=== PATIENT | male | born 1955 | race African-American/Black ===

== ENCOUNTER 2019-04-01 14:28 | Emergency (ER) | payer MEDICAID ==
[~2019-04-01] VITALS: Ht 195.6 cm; Wt 120.0 kg
[~2019-04-01 14:28] MED LIST: ACET-2178 PO; ALPR0.25 PO; BACL-141 PO; CLAR10 PO; DULO60CA44 PO; FINA5TAB11 PO; FURO-151 PO; GABA-290 PO; HYDR-523 PO; KDUR20 PO; LABE100T5 PO; MIRT15TA PO; NIFE30TA94 PO; PROT40 PO; TAMS-11 PO; ZOLP5TAB2 PO
[2019-04-01] MEDS ORDERED: KETOROLAC 30MG/ML VIAL IM ONE (16:00)
[2019-04-01 18:37] LABS: CHLORIDE 108 mEq/L (98-107)
[2019-04-01] MEDS ORDERED: LORAZEPAM 1MG TABLET PO ONE (19:00)
[2019-04-01 21:13] VITALS: BP 142/67
== END 2019-04-01 21:52 | disposition home or self-care (01) ==
LOC: ER 14:37
DX: M54.5 Low back pain (principal); G89.29 Other chronic pain; J45.909 Unspecified asthma, uncomplicated; I10 Essential (primary) hypertension; F17.200 Nicotine dependence, unspecified, uncomplicated; Z86.73 Personal history of transient ischemic attack (TIA), and cerebral infarction without residual deficits; Z88.0 Allergy status to penicillin; Z79.899 Other long term (current) drug therapy
CPT/HCPCS: 36415; 72148; 80048; 96372; 99284; J1885; Z7610

== ENCOUNTER 2019-04-01 22:23 | Inpatient (IN) | payer MEDICAID ==
[~2019-04-01] VITALS: Ht 195.6 cm; Wt 109.8 kg
[2019-04-02] MEDS ORDERED: KETOROLAC 30MG/ML VIAL IM STA (00:42)
[2019-04-02] MEDS ORDERED: SODIUM CHLORIDE 0.9% 1,000 ML IV NR (03:00)
[2019-04-02 03:41] LABS: CLARITY URINE CLEAR (CLEAR); COLOR URINE DARK YELLOW (YELLOW); KETONES URINE TRACE (NEGATIVE); LEUKOCYTE ESTERASE URINE 2+ (NEGATIVE); NITRITE URINE NEGATIVE (NEGATIVE); OCCULT BLOOD URINE NEGATIVE (NEGATIVE); PH URINE 6.5 (4.5-8.0); PROTEIN URINE TRACE (NEGATIVE); SPECIFIC GRAVITY URINE 1.025 (1.005-1.030)
[2019-04-02 04:00] LABS: *AMPHETAMINES SCREEN URINE PRESUMTIVE POSITIVE (NEGATIVE); *BARBITURATES SCREEN URINE NEGATIVE (NEGATIVE); *BENZODIAZEPINES SCREEN URINE NEGATIVE (NEGATIVE); *COCAINE SCREEN URINE PRESUMTIVE POSITIVE (NEGATIVE); METHADONE URINE SCREEN NEGATIVE (NEGATIVE); OPIATES URINE SCREEN NEGATIVE (NEGATIVE)
[2019-04-02 04:01] LABS: CANNABINOID URINE SCREEN PRESUMTIVE POSITIVE (NEGATIVE); PHENCYCLIDINE URINE SCREEN NEGATIVE (NEGATIVE)
[2019-04-02 05:03] LABS: BASOPHILS % 2.2 % (0.0-2.0); EOSINOPHILS % 7.2 % (0.0-5.0); HEMATOCRIT. 37.1 % (42.0-52.0); HEMOGLOBIN. 11.7 g/dL (14.0-18.0); LYMPHOCYTES % 46.9 % (20.0-50.0); MEAN CORPUSCULAR HEMOGLOBIN 23.8 pg (28.0-32.0); MEAN CORPUSCULAR VOLUME 75.1 fL (80.0-94.0); MEAN PLATELET VOLUME 7.4 fl (7.4-10.4); MONOCYTES % 9.4 % (2.0-8.0); NEUTROPHILS % 34.3 % (40.0-76.0); PLATELET 264 x1000/uL (130-400); RED BLOOD CELL COUNT 4.93 mill/uL (4.7-6.1); RED CELL DISTRIBUTION WIDTH 17.9 % (11.6-14.6)
[2019-04-02 05:07] LABS: CHLORIDE 110 mEq/L (98-107)
[2019-04-02 05:11] LABS: ETHANOL BLOOD < 10 mg/dL
[2019-04-02 05:22] LABS: INR 1.1; PROTHROMBIN TIME 11.4 sec (9.6-11.0)
[2019-04-02] MEDS ORDERED: IBUPROFEN 600MG TABLET PO PRN ×2 (06:15→18:00)
[2019-04-02 14:40] VITALS: BP_SYST 130; BP_SYST 133; BP_DIAS 60
[2019-04-02 16:00] VITALS: BP 136/59
[2019-04-02] MEDS ORDERED: IPRATROPIUM/ALBUTEROL 0.5-3(2.5)MG/3ML NEB INH PRN (18:00)
[2019-04-02] MEDS ORDERED: DIPHENHYDRAMINE 50MG/ML VIAL IV PRN (18:00)
[2019-04-02] MEDS ORDERED: ACETAMINOPHEN 325MG TABLET PO PRN (18:00)
[2019-04-02] MEDS ORDERED: MAGNESIUM/ALUMINUM HYDROXIDE/SIMETHICONE 30ML UDC PO PRN (18:00)
[2019-04-02] MEDS ORDERED: MAGNESIUM HYDROXIDE 400MG/5ML 30ML UDC PO PRN (18:00)
[2019-04-02] MEDS ORDERED: DEXTROSE 50% WATER 50ML SYRINGE IV PRN (18:00)
[2019-04-02] MEDS ORDERED: ONDANSETRON HCL 4MG/2ML INJ IV PRN (18:00)
[2019-04-02] MEDS ORDERED: CLONIDINE 0.1MG TABLET PO PRN (18:00)
[2019-04-02] MEDS ORDERED: KETOROLAC 30MG/ML VIAL IV PRN (18:00)
[2019-04-02] MEDS ORDERED: GUAIFENESIN 200MG/10ML SUGAR FREE UDC PO PRN (18:00)
[2019-04-02 20:23] VITALS: BP 133/58
[2019-04-02] MEDS: INSULIN LISPRO 100 UNITS/ML SUBCUT SCH (21:00)
[2019-04-02] MEDS: ENOXAPARIN 30MG/0.3ML SYR SUBCUT SCH (21:01)
[2019-04-02] MEDS: BLOOD SUGAR DIAGNOSTIC STRIP TEST SCH (21:17)
[2019-04-02] MEDS: SODIUM CHLORIDE 0.9% INJ 3ML FLUSH IVF SCH (21:19)
[2019-04-03 01:00] VITALS: BP 161/73
[2019-04-03 04:00] VITALS: BP 139/51
[2019-04-03] MEDS: SODIUM CHLORIDE 0.9% INJ 3ML FLUSH IVF SCH ×3 (05:18→21:35)
[2019-04-03] MEDS: BLOOD SUGAR DIAGNOSTIC STRIP TEST SCH ×4 (05:19→21:30)
[2019-04-03] MEDS ORDERED: LORAZEPAM 2MG/ML CPJ IV NR (07:30)
[2019-04-03 08:00] VITALS: BP 138/48
[2019-04-03] MEDS: INSULIN LISPRO 100 UNITS/ML SUBCUT SCH ×4 (08:10→21:00)
[2019-04-03] MEDS: ENOXAPARIN 30MG/0.3ML SYR SUBCUT SCH ×2 (09:29→21:35)
[2019-04-03 12:00] VITALS: BP 131/59
[2019-04-03] MEDS ORDERED: FUROSEMIDE 40MG/4ML VIAL IVP NR (12:15)
[2019-04-03 13:28] LABS: HEMATOCRIT 36.7 % (42.0-52.0); HEMOGLOBIN 11.6 g/dL (14.0-18.0); MEAN CORPUSCULAR HEMOGLOBIN 24.1 pg (28.0-32.0); MEAN CORPUSCULAR VOLUME 75.7 fL (80.0-94.0); PLATELET 241 x1000/uL (130-400); RED BLOOD CELL COUNT 4.84 mill/uL (4.7-6.1); RED CELL DISTRIBUTION WIDTH 17.9 % (11.6-14.6)
[2019-04-03 13:34] LABS: CHLORIDE 107 mEq/L (98-107)
[2019-04-03 16:00] VITALS: BP 163/73
[2019-04-03] MEDS: LEVOFLOXACIN 500MG PREMIX 100 ML IV SCH (17:04)
[2019-04-03 20:00] VITALS: BP 136/60
[2019-04-04] VITALS: BP 141/63
[2019-04-04 04:00] VITALS: BP 139/58
[2019-04-04 06:39] LABS: HEMATOCRIT 37.8 % (42.0-52.0); HEMOGLOBIN 12.1 g/dL (14.0-18.0); MEAN CORPUSCULAR HEMOGLOBIN 23.8 pg (28.0-32.0); MEAN CORPUSCULAR VOLUME 74.7 fL (80.0-94.0); PLATELET 272 x1000/uL (130-400); RED BLOOD CELL COUNT 5.07 mill/uL (4.7-6.1); RED CELL DISTRIBUTION WIDTH 18.2 % (11.6-14.6)
[2019-04-04] MEDS: SODIUM CHLORIDE 0.9% INJ 3ML FLUSH IVF SCH ×3 (06:40→22:16)
[2019-04-04] MEDS: BLOOD SUGAR DIAGNOSTIC STRIP TEST SCH ×4 (06:40→20:28)
[2019-04-04 06:51] LABS: CHLORIDE 109 mEq/L (98-107)
[2019-04-04 08:00] VITALS: BP 183/66
[2019-04-04] MEDS: INSULIN LISPRO 100 UNITS/ML SUBCUT SCH ×4 (08:10→20:28)
[2019-04-04] MEDS: ENOXAPARIN 30MG/0.3ML SYR SUBCUT SCH ×2 (09:13→20:29)
[2019-04-04 12:00] VITALS: BP 159/70
[2019-04-04] MEDS: LEVOFLOXACIN 500MG PREMIX 100 ML IV SCH (13:27)
[2019-04-04] MEDS ORDERED: FUROSEMIDE 40MG/4ML VIAL IVP SCH (14:00)
[2019-04-04 16:00] VITALS: BP 130/50
[2019-04-04] MEDS: IPRATROPIUM/ALBUTEROL 0.5-3(2.5)MG/3ML NEB HHN SCH (21:07)
[2019-04-05] VITALS: BP 137/51
[2019-04-05] MEDS: IPRATROPIUM/ALBUTEROL 0.5-3(2.5)MG/3ML NEB HHN SCH ×4 (01:54→20:52)
[2019-04-05 04:00] VITALS: BP 151/74
[2019-04-05] MEDS: BLOOD SUGAR DIAGNOSTIC STRIP TEST SCH ×4 (05:43→21:00)
[2019-04-05] MEDS: SODIUM CHLORIDE 0.9% INJ 3ML FLUSH IVF SCH ×3 (05:45→23:47)
[2019-04-05 08:00] VITALS: BP 134/46
[2019-04-05] MEDS: INSULIN LISPRO 100 UNITS/ML SUBCUT SCH ×4 (08:10→21:00)
[2019-04-05] MEDS: ENOXAPARIN 30MG/0.3ML SYR SUBCUT SCH ×2 (09:00→23:23)
[2019-04-05 12:00] VITALS: BP 141/58
[2019-04-05] MEDS ORDERED: GUAIFENESIN 600MG ER TABLET PO SCH (12:45)
[2019-04-05] MEDS ORDERED: HYDRALAZINE 20MG/ML VIAL IV PRN (12:45)
[2019-04-05 13:24] LABS: BG BASE EXCESS 1.1 mmol/L (-2.0-2.0); BG DEOXYHEMOGLOBIN 3.7 % (0.0-5.0); BG FRACTION INSPIRED OXYGEN 21; BG HCO3 ACT 26.3 mmol/L (22.0-26.0); BG METHEMOGLOBIN 0.4 % (0.0-1.5); BG OXYGEN SATURATION 96.2 % (92.0-98.5); BG OXYHEMOGLOBIN 94.9 % (94.0-97.0); BG PH 7.395 (7.350-7.450); BG PO2 82.6 mmHg (75.0-100.0); BG SAMPLE SITE LEFT BRACHIAL; BG TOTAL HEMOGLOBIN 13.1 g/dL (12.0-18.0); BG VENT MODE ROOM AIR
[2019-04-05] MEDS: AMLODIPINE 5MG TABLET PO SCH (14:30)
[2019-04-05] MEDS: FUROSEMIDE 40MG/4ML VIAL IVP SCH (15:35)
[2019-04-05] MEDS: LEVOFLOXACIN 500MG PREMIX 100 ML IV SCH (15:36)
[2019-04-05 16:00] VITALS: BP 133/77
[2019-04-05 20:28] LABS: BASOPHILS % 1.3 % (0.0-2.0); EOSINOPHILS % 6.9 % (0.0-5.0); HEMATOCRIT. 37.5 % (42.0-52.0); LYMPHOCYTES % 43.5 % (20.0-50.0); MEAN CORPUSCULAR VOLUME 75.3 fL (80.0-94.0); MEAN PLATELET VOLUME 7.9 fl (7.4-10.4); MONOCYTES % 10.2 % (2.0-8.0); NEUTROPHILS % 38.1 % (40.0-76.0); PLATELET 268 x1000/uL (130-400); RED BLOOD CELL COUNT 4.99 mill/uL (4.7-6.1); RED CELL DISTRIBUTION WIDTH 18.2 % (11.6-14.6)
[2019-04-05] MEDS: GUAIFENESIN 600MG ER TABLET PO SCH (23:23)
[2019-04-06] VITALS: BP 130/47
[2019-04-06] MEDS: IPRATROPIUM/ALBUTEROL 0.5-3(2.5)MG/3ML NEB HHN SCH ×6 (00:16→20:19)
[2019-04-06 04:00] VITALS: BP 121/53
[2019-04-06] MEDS: SODIUM CHLORIDE 0.9% INJ 3ML FLUSH IVF SCH ×3 (05:21→21:09)
[2019-04-06 06:27] LABS: CHLORIDE 105 mEq/L (98-107)
[2019-04-06] MEDS: BLOOD SUGAR DIAGNOSTIC STRIP TEST SCH ×4 (06:47→21:00)
[2019-04-06 08:00] VITALS: BP 127/48
[2019-04-06] MEDS: INSULIN LISPRO 100 UNITS/ML SUBCUT SCH ×4 (08:10→21:00)
[2019-04-06] MEDS: FUROSEMIDE 40MG/4ML VIAL IVP SCH (10:37)
[2019-04-06] MEDS: AMLODIPINE 5MG TABLET PO SCH (10:38)
[2019-04-06] MEDS: GUAIFENESIN 600MG ER TABLET PO SCH ×2 (10:38→21:08)
[2019-04-06] MEDS: ENOXAPARIN 30MG/0.3ML SYR SUBCUT SCH ×2 (10:38→21:09)
[2019-04-06 12:00] VITALS: BP 118/56
[2019-04-06] MEDS: LEVOFLOXACIN 500MG PREMIX 100 ML IV SCH (15:57)
[2019-04-06 16:00] VITALS: BP 132/69
[2019-04-06 20:00] VITALS: BP 120/52
[2019-04-07 00:05] VITALS: BP 125/53
[2019-04-07] MEDS: IPRATROPIUM/ALBUTEROL 0.5-3(2.5)MG/3ML NEB HHN SCH ×4 (00:55→16:01)
[2019-04-07 04:00] VITALS: BP 105/49
[2019-04-07] MEDS: SODIUM CHLORIDE 0.9% INJ 3ML FLUSH IVF SCH ×2 (05:32→16:25)
[2019-04-07] MEDS: BLOOD SUGAR DIAGNOSTIC STRIP TEST SCH ×2 (07:51→12:40)
[2019-04-07 08:00] VITALS: BP 122/55
[2019-04-07] MEDS: INSULIN LISPRO 100 UNITS/ML SUBCUT SCH ×2 (08:10→13:10)
[2019-04-07] MEDS: GUAIFENESIN 600MG ER TABLET PO SCH (10:07)
[2019-04-07] MEDS: FUROSEMIDE 40MG/4ML VIAL IVP SCH (10:07)
[2019-04-07] MEDS: AMLODIPINE 5MG TABLET PO SCH (10:08)
[2019-04-07] MEDS: ENOXAPARIN 30MG/0.3ML SYR SUBCUT SCH (10:09)
[2019-04-07 12:00] VITALS: BP 120/50
[2019-04-07 16:00] VITALS: BP 127/60
[2019-04-07] MEDS: LEVOFLOXACIN 500MG PREMIX 100 ML IV SCH (16:25)
[2019-04-07 19:11] VITALS: BP 132/55
== END 2019-04-07 19:30 | DRG 347 ==
LOC: ER 23:00 → EDBEDREQSVC 04-02 07:34 → 7WST 04-02 08:20 → EDBEDREQ 04-02 08:23 → ENRESERV 04-02 13:49 → 5WST 04-07 18:20
PROVIDERS: ADMIT Internal Medicine; ATTEND Internal Medicine
DX: M47.9 Spondylosis, unspecified (principal); I50.43 Acute on chronic combined systolic (congestive) and diastolic (congestive) heart failure; J44.1 Chronic obstructive pulmonary disease with (acute) exacerbation; I69.353 Hemiplegia and hemiparesis following cerebral infarction affecting right non-dominant side; E11.9 Type 2 diabetes mellitus without complications; M48.00 Spinal stenosis, site unspecified; R32 Unspecified urinary incontinence; N39.0 Urinary tract infection, site not specified; G89.29 Other chronic pain; I11.0 Hypertensive heart disease with heart failure; M46.90 Unspecified inflammatory spondylopathy, site unspecified; Z80.42 Family history of malignant neoplasm of prostate; Z91.19 Patient's noncompliance with other medical treatment and regimen; Z91.81 History of falling; Z98.1 Arthrodesis status; Z72.0 Tobacco use; R26.9 Unspecified abnormalities of gait and mobility; Z79.84 Long term (current) use of oral hypoglycemic drugs
CPT/HCPCS: 36415; 36600; 71045; 80048; 80305; 80320; 82375; 82805; 82962; 83036; 85027; 93306; 93970; 96360; 96372; 97110; 97116; 97162; 97530; 99285; J1650; J1815; J1885; J1940; J1956; J7050; J7620; G0480

== ENCOUNTER 2019-12-08 20:14 | Emergency (ER) | payer MEDICAID ==
[~2019-12-08 20:14] MED LIST changes: -ACET-2178 PO; +TOPUD PO
== END 2019-12-08 21:22 | disposition left against medical advice (07) ==
LOC: ER 20:14
DX: R55 Syncope and collapse (principal); Z53.21 Procedure and treatment not carried out due to patient leaving prior to being seen by health care provider

== ENCOUNTER 2020-02-11 23:31 | Inpatient (IN) | payer MEDICAID ==
[~2020-02-11] VITALS: Ht 195.6 cm; Wt 117.9 kg
[~2020-02-11 23:31] MED LIST changes: +ALBU18HF2 IH
[2020-02-12] MEDS ORDERED: ASPIRIN 81MG TABLET PO ONE (01:00)
[2020-02-12] MEDS ORDERED: NITROGLYCERIN OINT 1GM/INCH UDPKT TD ONE (01:00)
[2020-02-12 01:16] LABS: CHLORIDE 110 mEq/L (98-107)
[2020-02-12 01:25] LABS: BASOPHILS % 2.6 % (0.0-2.0); EOSINOPHILS % 7.4 % (0.0-5.0); HEMATOCRIT. 41.6 % (42.0-52.0); HEMOGLOBIN. 13.4 g/dL (14.0-18.0); LYMPHOCYTES % 43.6 % (20.0-50.0); MEAN CORPUSCULAR HEMOGLOBIN 25.3 pg (28.0-32.0); MEAN CORPUSCULAR VOLUME 78.5 fL (80.0-94.0); MEAN PLATELET VOLUME 8.4 fl (7.4-10.4); MONOCYTES % 10.6 % (2.0-8.0); NEUTROPHILS % 35.8 % (40.0-76.0); PLATELET 262 x1000/uL (130-400); RED CELL DISTRIBUTION WIDTH 17.8 % (11.6-14.6)
[2020-02-12] MEDS ORDERED: KETOROLAC 15MG/ML VIAL IV PRN (08:45)
[2020-02-12] MEDS ORDERED: GUAIFENESIN 200MG/10ML SUGAR FREE UDC PO PRN (08:45)
[2020-02-12] MEDS ORDERED: ENOXAPARIN 40MG/0.4ML SYR SUBCUT SCH (08:45)
[2020-02-12] MEDS ORDERED: IPRATROPIUM/ALBUTEROL 0.5-3(2.5)MG/3ML NEB NEB PRN (08:45)
[2020-02-12] MEDS ORDERED: NITROGLYCERIN 0.4MG TABLET SL SL PRN (08:45)
[2020-02-12] MEDS ORDERED: CLONIDINE 0.1MG TABLET PO PRN (08:45)
[2020-02-12] MEDS ORDERED: ACETAMINOPHEN 325MG TABLET PO PRN ×2 (08:45)
[2020-02-12] MEDS ORDERED: MAGNESIUM/ALUMINUM HYDROXIDE/SIMETHICONE 30ML UDC PO PRN (08:45)
[2020-02-12] MEDS ORDERED: ZOLPIDEM TARTRATE 5MG TABLET PO PRN (08:45)
[2020-02-12] MEDS ORDERED: LORAZEPAM 0.5MG TABLET PO PRN (08:45)
[2020-02-12] MEDS ORDERED: ONDANSETRON HCL 4MG/2ML INJ IV PRN (08:45)
[2020-02-12] MEDS ORDERED: DOCUSATE SODIUM 100MG CAPSULE PO PRN (08:45)
[2020-02-12] MEDS: ASPIRIN 325MG EC TABLET PO SCH (09:52)
[2020-02-12] MEDS: SPIRONOLACTONE 25MG TABLET PO SCH ×2 (09:52→21:00)
[2020-02-12] MEDS: FAMOTIDINE 20MG TABLET PO SCH ×2 (09:53→21:39)
[2020-02-12] MEDS: FUROSEMIDE 20MG/2ML VIAL IV SCH ×2 (09:53→16:51)
[2020-02-12 11:40] VITALS: BP 161/74
[2020-02-12 12:00] VITALS: BP 161/74
[2020-02-12] MEDS ORDERED: MORP30CP13 PO (12:11)
[2020-02-12] MEDS ORDERED: OXYC30TA89 PO (12:12)
[2020-02-12] MEDS ORDERED: AMLO5TAB88 PO (12:12)
[2020-02-12] MEDS: ENOXAPARIN 40MG/0.4ML SYR SUBCUT SCH (15:17)
[2020-02-12 16:00] VITALS: BP 132/46
[2020-02-12 20:00] VITALS: BP 138/55
[2020-02-12] MEDS: LISINOPRIL 10MG TABLET PO SCH (21:39)
[2020-02-12 23:59] LABS: CREATINE KINASE MB FRACTION 1.5 ng/mL (0.5-3.6)
[2020-02-13] VITALS: BP 144/60
[2020-02-13 04:00] VITALS: BP 127/52
[2020-02-13 04:55] LABS: *AMPHETAMINES SCREEN URINE NEGATIVE (NEGATIVE); CANNABINOID URINE SCREEN PRESUMTIVE POSITIVE (NEGATIVE); METHADONE URINE SCREEN NEGATIVE (NEGATIVE); OPIATES URINE SCREEN NEGATIVE (NEGATIVE); PHENCYCLIDINE URINE SCREEN NEGATIVE (NEGATIVE)
[2020-02-13 04:56] LABS: *BARBITURATES SCREEN URINE NEGATIVE (NEGATIVE); *BENZODIAZEPINES SCREEN URINE NEGATIVE (NEGATIVE); *COCAINE SCREEN URINE NEGATIVE (NEGATIVE)
[2020-02-13 08:00] VITALS: BP 184/55
[2020-02-13] MEDS: ASPIRIN 325MG EC TABLET PO SCH (09:53)
[2020-02-13] MEDS: ENOXAPARIN 40MG/0.4ML SYR SUBCUT SCH (09:53)
[2020-02-13] MEDS: FAMOTIDINE 20MG TABLET PO SCH (09:53)
[2020-02-13] MEDS: FUROSEMIDE 20MG/2ML VIAL IV SCH (09:53)
[2020-02-13] MEDS: SPIRONOLACTONE 25MG TABLET PO SCH (09:54)
[2020-02-13] MEDS: LISINOPRIL 10MG TABLET PO SCH (09:54)
[2020-02-13] MEDS ORDERED: AMLODIPINE 10MG TABLET PO SCH (11:00)
[2020-02-13 12:00] VITALS: BP 162/79
[2020-02-13 16:00] VITALS: BP 141/100
== END 2020-02-13 17:30 | disposition home or self-care (01) | DRG 816 ==
LOC: ER 23:31 → 5WST 02-12 04:34 → EDBEDREQ 02-12 04:40 → EDBEDREQTM 02-12 04:40 → ENRESERV 02-12 10:49
PROVIDERS: ADMIT Internal Medicine; ATTEND Internal Medicine
DX: T40.5X1A Poisoning by cocaine, accidental (unintentional), initial encounter (principal); I21.4 Non-ST elevation (NSTEMI) myocardial infarction; I11.0 Hypertensive heart disease with heart failure; I50.32 Chronic diastolic (congestive) heart failure; I20.1 Angina pectoris with documented spasm; J44.9 Chronic obstructive pulmonary disease, unspecified; D63.8 Anemia in other chronic diseases classified elsewhere; F14.10 Cocaine abuse, uncomplicated; Y92.89 Other specified places as the place of occurrence of the external cause; Z86.73 Personal history of transient ischemic attack (TIA), and cerebral infarction without residual deficits; Z88.0 Allergy status to penicillin; Z79.899 Other long term (current) drug therapy
CPT/HCPCS: 36415; 71045; 80053; 80061; 80305; 82550; 82553; 83036; 83880; 84484; 85025; 92610; 93005; 93970; 99285; J1650; J1885; J1940

== ENCOUNTER 2020-03-18 22:07 | Inpatient (IN) | payer MEDICAID ==
[~2020-03-18] VITALS: Ht 180.3 cm; Wt 120.2 kg
[~2020-03-18 22:07] MED LIST changes: +AMLO5TAB88 PO; +MORP30CP13 PO; +OXYC30TA89 PO
[2020-03-19] MEDS ORDERED: ONDANSETRON HCL 4MG/2ML INJ IV STA (00:03)
[2020-03-19] MEDS ORDERED: DEXTROSE 5% WATER 1,000 ML IV ONE (00:03)
[2020-03-19 00:27] LABS: BASOPHILS % 1.5 % (0.0-2.0); EOSINOPHILS % 4.1 % (0.0-5.0); HEMATOCRIT. 37.2 % (42.0-52.0); HEMOGLOBIN. 12.1 g/dL (14.0-18.0); LYMPHOCYTES % 36.1 % (20.0-50.0); MEAN CORPUSCULAR HEMOGLOBIN 25.2 pg (28.0-32.0); MEAN CORPUSCULAR VOLUME 77.4 fL (80.0-94.0); MEAN PLATELET VOLUME 8.6 fl (7.4-10.4); MONOCYTES % 8.7 % (2.0-8.0); NEUTROPHILS % 49.6 % (40.0-76.0); PLATELET 258 x1000/uL (130-400); RED BLOOD CELL COUNT 4.81 mill/uL (4.7-6.1); RED CELL DISTRIBUTION WIDTH 17.3 % (11.6-14.6)
[2020-03-19 00:29] LABS: BG BASE EXCESS 0.6 mmol/L (-2.0-2.0); BG CARBOXYHEMOGLOBIN 2.9 % (0.5-1.5); BG DEOXYHEMOGLOBIN 7.1 % (0.0-5.0); BG FRACTION INSPIRED OXYGEN 21; BG HCO3 ACT 26.3 mmol/L (22.0-26.0); BG METHEMOGLOBIN 0.2 % (0.0-1.5); BG OXYGEN SATURATION 92.7 % (92.0-98.5); BG OXYHEMOGLOBIN 89.8 % (94.0-97.0); BG PCO2 46.6 mmHg (35.0-45.0); BG PH 7.369 (7.350-7.450); BG PO2 69.4 mmHg (75.0-100.0); BG SAMPLE SITE RIGHT RADIAL; BG TOTAL HEMOGLOBIN 12.6 g/dL (12.0-18.0); BG VENT MODE ROOM AIR
[2020-03-19 00:32] LABS: PROTHROMBIN TIME 10.7 sec (9.6-11.0)
[2020-03-19 00:34] LABS: CHLORIDE 107 mEq/L (98-107)
[2020-03-19 00:38] LABS: ETHANOL BLOOD < 10 mg/dL
[2020-03-19 04:18] LABS: CLARITY URINE CLEAR (CLEAR); COLOR URINE YELLOW (YELLOW); KETONES URINE NEGATIVE (NEGATIVE); LEUKOCYTE ESTERASE URINE 2+ (NEGATIVE); NITRITE URINE NEGATIVE (NEGATIVE); OCCULT BLOOD URINE NEGATIVE (NEGATIVE); PROTEIN URINE NEGATIVE (NEGATIVE); SPECIFIC GRAVITY URINE 1.017 (1.005-1.030)
[2020-03-19 04:34] LABS: *AMPHETAMINES SCREEN URINE NEGATIVE (NEGATIVE); *BARBITURATES SCREEN URINE NEGATIVE (NEGATIVE); *BENZODIAZEPINES SCREEN URINE NEGATIVE (NEGATIVE)
[2020-03-19 04:35] LABS: *COCAINE SCREEN URINE PRESUMTIVE POSITIVE (NEGATIVE); CANNABINOID URINE SCREEN PRESUMTIVE POSITIVE (NEGATIVE); METHADONE URINE SCREEN NEGATIVE (NEGATIVE); OPIATES URINE SCREEN NEGATIVE (NEGATIVE); PHENCYCLIDINE URINE SCREEN NEGATIVE (NEGATIVE)
[2020-03-19] MEDS ORDERED: CEFTRIAXONE 1 G PREMIX 50 ML IV ONE (06:00)
[2020-03-19] MEDS ORDERED: ACETAMINOPHEN 325MG TABLET PO PRN (08:45)
[2020-03-19] MEDS ORDERED: ONDANSETRON HCL 4MG/2ML INJ IV PRN (08:45)
[2020-03-19] MEDS ORDERED: ENOXAPARIN 30MG/0.3ML SYR SUBCUT SCH (13:15)
[2020-03-19] MEDS ORDERED: ASPIRIN 300MG SUPP PR NR (13:15)
[2020-03-19] MEDS ORDERED: FUROSEMIDE 40MG/4ML VIAL IVP NR (16:30)
[2020-03-19 16:35] VITALS: BP 118/72
[2020-03-19 17:01] LABS: FOLIC ACID (FOLATE) SERUM 12.9 ng/mL (>5.38)
[2020-03-19] MEDS ORDERED: IPRATROPIUM/ALBUTEROL 0.5-3(2.5)MG/3ML NEB HHN PRN (17:15)
[2020-03-20] VITALS: BP 138/69
[2020-03-20 04:00] VITALS: BP 129/89
[2020-03-20 08:00] VITALS: BP 154/63
[2020-03-20] MEDS: ENOXAPARIN 30MG/0.3ML SYR SUBCUT SCH ×2 (08:12→22:36)
[2020-03-20] MEDS: CLOPIDOGREL 75MG TABLET PO SCH (08:12)
[2020-03-20 12:00] VITALS: BP 154/63
[2020-03-20] MEDS ORDERED: FUROSEMIDE 40MG/4ML VIAL IVP NR (16:15)
[2020-03-20 16:38] VITALS: BP 160/66
[2020-03-20] MEDS ORDERED: CLONIDINE 0.1MG TABLET PO PRN (18:30)
[2020-03-20 20:00] VITALS: BP 152/84
[2020-03-21] VITALS: BP 159/60
[2020-03-21 04:00] VITALS: BP 157/70
[2020-03-21 08:00] VITALS: BP 141/57
[2020-03-21] MEDS ORDERED: FUROSEMIDE 40MG/4ML VIAL IVP NR (09:00)
[2020-03-21] MEDS: ENOXAPARIN 30MG/0.3ML SYR SUBCUT SCH ×2 (09:03→20:38)
[2020-03-21] MEDS: CLOPIDOGREL 75MG TABLET PO SCH (09:03)
[2020-03-21 12:00] VITALS: BP 134/50
[2020-03-21] MEDS ORDERED: POTA20TA82 MT (12:22)
[2020-03-21] MEDS ORDERED: ALBU18HF2 IH (12:22)
[2020-03-21] MEDS ORDERED: TAMS-11 PO (12:22)
[2020-03-21] MEDS ORDERED: CLOP75TA4 MT (12:22)
[2020-03-21] MEDS ORDERED: AMLO10TA80 MT (12:22)
[2020-03-21] MEDS ORDERED: FURO-151 PO (12:22)
[2020-03-21 16:00] VITALS: BP 127/55
[2020-03-21 16:28] LABS: BASOPHILS % 3.1 % (0.0-2.0); EOSINOPHILS % 7.5 % (0.0-5.0); HEMOGLOBIN. 13.9 g/dL (14.0-18.0); LYMPHOCYTES % 41.9 % (20.0-50.0); MEAN CORPUSCULAR HEMOGLOBIN 24.5 pg (28.0-32.0); MEAN CORPUSCULAR VOLUME 77.8 fL (80.0-94.0); MEAN PLATELET VOLUME 8.1 fl (7.4-10.4); MONOCYTES % 11.1 % (2.0-8.0); NEUTROPHILS % 36.4 % (40.0-76.0); PLATELET 317 x1000/uL (130-400); RED BLOOD CELL COUNT 5.66 mill/uL (4.7-6.1); RED CELL DISTRIBUTION WIDTH 17.9 % (11.6-14.6)
[2020-03-21 16:34] LABS: CHLORIDE 105 mEq/L (98-107)
[2020-03-21 20:00] VITALS: BP 150/64
[2020-03-22] VITALS: BP 133/56
[2020-03-22 04:00] VITALS: BP 95/59
[2020-03-22] MEDS: CLOPIDOGREL 75MG TABLET PO SCH (08:43)
[2020-03-22] MEDS: ENOXAPARIN 30MG/0.3ML SYR SUBCUT SCH (08:43)
[2020-03-22 11:23] VITALS: BP 146/75
== END 2020-03-22 13:30 | disposition home or self-care (01) | DRG 45 ==
LOC: ER 22:07 → 5WST 03-19 02:52 → EDBEDREQ 03-19 03:01 → EDBEDREQTM 03-19 03:01 → ENRESERV 03-19 13:37
PROVIDERS: ADMIT Internal Medicine; ATTEND Internal Medicine
DX: I63.9 Cerebral infarction, unspecified (principal); G92 Toxic encephalopathy; I50.31 Acute diastolic (congestive) heart failure; I11.0 Hypertensive heart disease with heart failure; I69.351 Hemiplegia and hemiparesis following cerebral infarction affecting right dominant side; D64.9 Anemia, unspecified; E66.9 Obesity, unspecified; F12.10 Cannabis abuse, uncomplicated; F14.10 Cocaine abuse, uncomplicated; F17.210 Nicotine dependence, cigarettes, uncomplicated; I16.1 Hypertensive emergency; Z60.2 Problems related to living alone; T46.5X6A Underdosing of other antihypertensive drugs, initial encounter; J44.9 Chronic obstructive pulmonary disease, unspecified; I25.2 Old myocardial infarction; Z91.14 Patient's other noncompliance with medication regimen; Y92.89 Other specified places as the place of occurrence of the external cause; Z79.899 Other long term (current) drug therapy; Z88.0 Allergy status to penicillin; Z71.89 Other specified counseling; Z71.6 Tobacco abuse counseling; Z68.37 Body mass index [BMI] 37.0-37.9, adult
CPT/HCPCS: 36415; 36600; 71045; 80048; 80053; 80061; 80305; 80320; 81003; 82140; 82375; 82607; 82746; 82805; 83036; 83605; 83880; 84439; 84443; 84481; 84484; 85025; 86850; 86900; 93005; 93306; 93880; 97162; 97166; 99291; J0696; J1650; J1940; J2405; J7070; G0480

== ENCOUNTER 2020-06-22 21:37 | Emergency (ER) | payer MEDICAID ==
[~2020-06-22] VITALS: Ht 175.3 cm; Wt 84.0 kg
[~2020-06-22 21:37] MED LIST changes: +AMLO10TA80 MT; +CLOP75TA4 MT; +POTA20TA82 MT
[2020-06-22 22:35] VITALS: BP 149/72
[2020-06-22] MEDS ORDERED: ASPIRIN 81MG TABLET PO ONE (22:45)
[2020-06-22] MEDS ORDERED: NITROGLYCERIN 0.4MG TABLET SL SL PRN (22:45)
== END 2020-06-22 23:50 | disposition home or self-care (01) ==
LOC: ER 21:37
DX: R07.89 Other chest pain (principal); I25.2 Old myocardial infarction; I25.10 Atherosclerotic heart disease of native coronary artery without angina pectoris; Z86.73 Personal history of transient ischemic attack (TIA), and cerebral infarction without residual deficits; Z88.0 Allergy status to penicillin
CPT/HCPCS: 93005; 99283

== ENCOUNTER 2021-08-06 10:53 | Emergency (ER) | payer MEDICAID ==
[~2021-08-06] VITALS: Ht 170.2 cm; Wt 109.0 kg
[~2021-08-06 10:53] MED LIST changes: +CLOP-31 MT; -CLOP75TA4 MT; +MIRT-118 PO; -MIRT15TA PO; +OXYC-582 PO; -OXYC30TA89 PO
[2021-08-06] MEDS ORDERED: ALPRAZOLAM 0.25 MG TABLET PO ONE (11:30)
[2021-08-06] MEDS ORDERED: HYDROCODONE/ACETAMINOPHEN 5/325MG TABLET PO ONE (11:30)
[2021-08-06] MEDS ORDERED: LABETALOL HCL 100MG TABLET PO ONE (11:30)
[2021-08-06] MEDS ORDERED: TETANUS, DIPHTHERIA, PERTUSSIS VAC/PF 0.5ML (>10YR OLD) IM ONE (11:45)
[2021-08-06] MEDS ORDERED: BACITRACIN 15GM TUBE TOP ONE (11:45)
[2021-08-06] MEDS ORDERED: HALOPERIDOL LACTATE 5MG/ML VIAL IM ONE (13:30)
[2021-08-06] MEDS ORDERED: DIPHENHYDRAMINE 50MG/ML VIAL IM ONE (13:30)
[2021-08-06 14:25] LABS: CHLORIDE 111 mEq/L (98-107)
[2021-08-06 14:59] LABS: BASOPHILS % 1.5 % (0.0-2.0); HEMATOCRIT. 33.9 % (42.0-52.0); HEMOGLOBIN. 10.3 g/dL (14.0-18.0); LYMPHOCYTES % 30.8 % (20.0-50.0); MEAN PLATELET VOLUME 7.4 fl (7.4-10.4); MONOCYTES % 7.7 % (2.0-8.0); PLATELET 351 x1000/uL (130-400); RED BLOOD CELL COUNT 4.92 mill/uL (4.7-6.1); RED CELL DISTRIBUTION WIDTH 19.6 % (11.6-14.6)
[2021-08-06 15:49] LABS: PLATELET ESTIMATE NORMAL
[2021-08-06 20:33] LABS: CLARITY URINE CLEAR (CLEAR); COLOR URINE YELLOW (YELLOW); KETONES URINE NEGATIVE (NEGATIVE); LEUKOCYTE ESTERASE URINE 1+ (NEGATIVE); NITRITE URINE NEGATIVE (NEGATIVE); OCCULT BLOOD URINE NEGATIVE (NEGATIVE); PH URINE 6.5 (4.5-8.0); PROTEIN URINE NEGATIVE (NEGATIVE); SPECIFIC GRAVITY URINE 1.014 (1.005-1.030)
[2021-08-06 20:47] LABS: *AMPHETAMINES SCREEN URINE NEGATIVE (NEGATIVE); *BARBITURATES SCREEN URINE NEGATIVE (NEGATIVE)
[2021-08-06 20:48] LABS: *BENZODIAZEPINES SCREEN URINE NEGATIVE (NEGATIVE); *COCAINE SCREEN URINE PRESUMTIVE POSITIVE (NEGATIVE); METHADONE URINE SCREEN NEGATIVE (NEGATIVE); OPIATES URINE SCREEN PRESUMTIVE POSITIVE (NEGATIVE); PHENCYCLIDINE URINE SCREEN NEGATIVE (NEGATIVE)
[2021-08-06 20:49] LABS: CANNABINOID URINE SCREEN PRESUMTIVE POSITIVE (NEGATIVE)
[2021-08-07 06:00] VITALS: BP 138/59
== END 2021-08-07 06:51 | disposition home or self-care (01) ==
LOC: ER 10:53
DX: S09.8XXA Other specified injuries of head, initial encounter (principal); S80.212A Abrasion, left knee, initial encounter; S80.211A Abrasion, right knee, initial encounter; M79.18 Myalgia, other site; M54.2 Cervicalgia; M54.9 Dorsalgia, unspecified; R45.1 Restlessness and agitation; Y08.89XA Assault by other specified means, initial encounter; Y04.2XXA Assault by strike against or bumped into by another person, initial encounter; Y93.89 Activity, other specified; Y92.488 Other paved roadways as the place of occurrence of the external cause; F40.240 Claustrophobia; D64.9 Anemia, unspecified; F41.9 Anxiety disorder, unspecified; N40.0 Benign prostatic hyperplasia without lower urinary tract symptoms; J45.909 Unspecified asthma, uncomplicated; I25.2 Old myocardial infarction; I11.9 Hypertensive heart disease without heart failure; Z86.73 Personal history of transient ischemic attack (TIA), and cerebral infarction without residual deficits; Z88.0 Allergy status to penicillin; Z79.899 Other long term (current) drug therapy; Z79.51 Long term (current) use of inhaled steroids
CPT/HCPCS: 36415; 70450; 80053; 80305; 81003; 82140; 85025; 90471; 90715; 93005; 96372; 99285; J1200; J1630

== ENCOUNTER 2021-08-09 13:06 | Inpatient (IN) | payer MEDICAID ==
[~2021-08-09] VITALS: Ht 195.6 cm; Wt 107.0 kg
[2021-08-09] MEDS ORDERED: ONDANSETRON HCL 4MG/2ML INJ IV STA (13:47)
[2021-08-09] MEDS ORDERED: MORPHINE SULFATE 4 MG/ML CPJ (NOT FOR IM USE) IV STA (13:47)
[2021-08-09] MEDS ORDERED: SODIUM CHLORIDE 0.9% 1,000 ML IV ONE (14:00)
[2021-08-09 14:29] LABS: BASOPHILS % 1.8 % (0.0-2.0); EOSINOPHILS % 5.8 % (0.0-5.0); HEMATOCRIT. 35.9 % (42.0-52.0); HEMOGLOBIN. 11.3 g/dL (14.0-18.0); LYMPHOCYTES % 30.4 % (20.0-50.0); MEAN CORPUSCULAR HEMOGLOBIN 21.4 pg (28.0-32.0); MEAN CORPUSCULAR VOLUME 68.1 fL (80.0-94.0); MEAN PLATELET VOLUME 8.4 fl (7.4-10.4); MONOCYTES % 11.9 % (2.0-8.0); NEUTROPHILS % 50.1 % (40.0-76.0); PLATELET 305 x1000/uL (130-400); RED BLOOD CELL COUNT 5.27 mill/uL (4.7-6.1); RED CELL DISTRIBUTION WIDTH 19.8 % (11.6-14.6)
[2021-08-09 14:36] LABS: CHLORIDE 111 mEq/L (98-107)
[2021-08-09 14:40] LABS: D-DIMER 1.18 mg/L FEU (<0.50); PARTIAL THROMBOPLASTIN TIME 26.1 sec (23.4-31.0); PROTHROMBIN TIME 11.2 sec (9.6-11.0)
[2021-08-09 14:41] LABS: ETHANOL BLOOD < 10 mg/dL
[2021-08-09 14:51] LABS: PLATELET ESTIMATE NORMAL
[2021-08-09] MEDS ORDERED: ACETAMINOPHEN 650MG SUPP PR PRN ×2 (16:45)
[2021-08-09] MEDS ORDERED: DIPHENHYDRAMINE 50MG/ML VIAL IV PRN (16:45)
[2021-08-09] MEDS ORDERED: ACETAMINOPHEN 650MG/20.3ML UDC GT PRN ×2 (16:45)
[2021-08-09] MEDS ORDERED: GUAIFENESIN 200MG/10ML SUGAR FREE UDC PO PRN (16:45)
[2021-08-09] MEDS ORDERED: DOCUSATE SODIUM 100MG CAPSULE PO PRN (16:45)
[2021-08-09] MEDS ORDERED: ACETAMINOPHEN 325MG TABLET PO PRN ×2 (16:45)
[2021-08-09] MEDS ORDERED: MAGNESIUM/ALUMINUM HYDROXIDE/SIMETHICONE 30ML UDC PO PRN (16:45)
[2021-08-09] MEDS ORDERED: CLONIDINE 0.1MG TABLET PO PRN (16:45)
[2021-08-09] MEDS ORDERED: NA PHOS,M-B/NA PHOS,DI-BA ENEMA 118ML PR PRN (16:45)
[2021-08-09] MEDS: ENOXAPARIN 40MG/0.4ML SYR SUBCUT SCH (17:57)
[2021-08-09] MEDS: SODIUM CHLORIDE 0.9% INJ 3ML FLUSH IVF SCH (22:32)
[2021-08-09] MEDS ORDERED: IOHEXOL-350 100 ML BOTTLE ONE (23:40)
[2021-08-09 23:43] VITALS: BP 136/61
[2021-08-09 23:52] VITALS: BP 136/61
[2021-08-10 04:00] VITALS: BP 130/58
[2021-08-10] MEDS: SODIUM CHLORIDE 0.9% INJ 3ML FLUSH IVF SCH ×3 (05:53→21:50)
[2021-08-10 07:51] LABS: EOSINOPHILS % 7.8 % (0.0-5.0); HEMATOCRIT. 33.7 % (42.0-52.0); HEMOGLOBIN. 10.6 g/dL (14.0-18.0); LYMPHOCYTES % 35.6 % (20.0-50.0); MEAN CORPUSCULAR HEMOGLOBIN 21.6 pg (28.0-32.0); MEAN CORPUSCULAR VOLUME 68.8 fL (80.0-94.0); MEAN PLATELET VOLUME 8.8 fl (7.4-10.4); MONOCYTES % 9.6 % (2.0-8.0); PLATELET 302 x1000/uL (130-400); RED BLOOD CELL COUNT 4.89 mill/uL (4.7-6.1); RED CELL DISTRIBUTION WIDTH 19.7 % (11.6-14.6)
[2021-08-10 08:00] VITALS: BP 139/59
[2021-08-10 09:04] LABS: CHLORIDE 109 mEq/L (98-107)
[2021-08-10 09:21] LABS: HDL CHOLESTEROL 55 mg/dL (40-59); LDL CHOLESTEROL 35 mg/dL (5-100)
[2021-08-10 09:22] LABS: CREATINE KINASE 54 IU/L (39-308)
[2021-08-10 09:26] LABS: CREATINE KINASE MB FRACTION 2.1 ng/mL (0.5-3.6)
[2021-08-10] MEDS: ASPIRIN 81MG TABLET PO SCH (11:26)
[2021-08-10 12:00] VITALS: BP 141/61
[2021-08-10 15:59] LABS: T4 FREE 0.94 ng/dL (0.76-1.46)
[2021-08-10 16:00] VITALS: BP 154/65
[2021-08-10] MEDS: ENOXAPARIN 40MG/0.4ML SYR SUBCUT SCH (18:10)
[2021-08-10 20:00] VITALS: BP 144/61
[2021-08-11] VITALS: BP 115/64
[2021-08-11 04:00] VITALS: BP 146/65
[2021-08-11] MEDS: SODIUM CHLORIDE 0.9% INJ 3ML FLUSH IVF SCH ×2 (05:12→22:50)
[2021-08-11 08:00] VITALS: BP 135/63
[2021-08-11] MEDS: ASPIRIN 81MG TABLET PO SCH (09:10)
[2021-08-11 12:00] VITALS: BP 134/56
[2021-08-11 16:00] VITALS: BP 119/67
[2021-08-11] MEDS: ENOXAPARIN 40MG/0.4ML SYR SUBCUT SCH (18:15)
[2021-08-11 20:00] VITALS: BP 124/55
[2021-08-11] MEDS ORDERED: HYDROCODONE/ACETAMINOPHEN 5/325MG TABLET PO PRN (20:30)
[2021-08-11] MEDS ORDERED: FUROSEMIDE 40MG TABLET PO NR (20:45)
[2021-08-12] VITALS: BP 120/66
[2021-08-12 04:00] VITALS: BP 146/57
[2021-08-12] MEDS: SODIUM CHLORIDE 0.9% INJ 3ML FLUSH IVF SCH ×2 (05:22→14:53)
[2021-08-12 05:47] LABS: BASOPHILS % 2.1 % (0.0-2.0); EOSINOPHILS % 9.9 % (0.0-5.0); HEMATOCRIT. 34.7 % (42.0-52.0); HEMOGLOBIN. 10.8 g/dL (14.0-18.0); MEAN CORPUSCULAR HEMOGLOBIN 21.4 pg (28.0-32.0); MEAN CORPUSCULAR VOLUME 68.6 fL (80.0-94.0); MEAN PLATELET VOLUME 8.7 fl (7.4-10.4); MONOCYTES % 7.8 % (2.0-8.0); NEUTROPHILS % 39.2 % (40.0-76.0); PLATELET 277 x1000/uL (130-400); RED BLOOD CELL COUNT 5.05 mill/uL (4.7-6.1); RED CELL DISTRIBUTION WIDTH 19.2 % (11.6-14.6)
[2021-08-12 05:57] LABS: CHLORIDE 105 mEq/L (98-107)
[2021-08-12 08:00] VITALS: BP 129/57
[2021-08-12] MEDS ORDERED: LOSARTAN POTASSIUM 25 MG TABLET PO SCH (08:00)
[2021-08-12] MEDS: ASPIRIN 81MG TABLET PO SCH (08:17)
[2021-08-12] MEDS ORDERED: FUROSEMIDE 40MG TABLET PO SCH (09:00)
[2021-08-12 12:00] VITALS: BP 144/63
[2021-08-12 12:04] LABS: *AMPHETAMINES SCREEN URINE NEGATIVE (NEGATIVE); *COCAINE SCREEN URINE NEGATIVE (NEGATIVE); CANNABINOID URINE SCREEN PRESUMTIVE POSITIVE (NEGATIVE); METHADONE URINE SCREEN NEGATIVE (NEGATIVE); OPIATES URINE SCREEN PRESUMTIVE POSITIVE (NEGATIVE); PHENCYCLIDINE URINE SCREEN NEGATIVE (NEGATIVE)
[2021-08-12 12:05] LABS: *BARBITURATES SCREEN URINE NEGATIVE (NEGATIVE); *BENZODIAZEPINES SCREEN URINE NEGATIVE (NEGATIVE)
[2021-08-12 14:51] VITALS: BP 144/63
[2021-08-12 16:00] VITALS: BP 105/60
== END 2021-08-12 18:46 | DRG 243 ==
LOC: ER 13:06 → MICUSO 16:26 → 8WST 20:54
PROVIDERS: ADMIT Family Medicine; ATTEND Family Medicine
DX: K21.9 Gastro-esophageal reflux disease without esophagitis (principal); I42.9 Cardiomyopathy, unspecified; I50.32 Chronic diastolic (congestive) heart failure; I11.0 Hypertensive heart disease with heart failure; E78.5 Hyperlipidemia, unspecified; I25.10 Atherosclerotic heart disease of native coronary artery without angina pectoris; J44.9 Chronic obstructive pulmonary disease, unspecified; F17.210 Nicotine dependence, cigarettes, uncomplicated; Z20.822 Contact with and (suspected) exposure to COVID-19; N40.0 Benign prostatic hyperplasia without lower urinary tract symptoms; Z59.0 Homelessness; I25.2 Old myocardial infarction; Z86.73 Personal history of transient ischemic attack (TIA), and cerebral infarction without residual deficits; Z88.0 Allergy status to penicillin
CPT/HCPCS: 36415; 71045; 73521; 78580; 80048; 80053; 80061; 80305; 80320; 82550; 82553; 83036; 83880; 84439; 84443; 84484; 85025; 85379; 87426; 93005; 93306; 93970; 97162; 97166; 99285; J1650; J2270; J2405; J7030; Q9967; G0480

== ENCOUNTER 2022-07-20 12:14 | Emergency (ER) | payer MEDICARE, MEDICAID ==
[~2022-07-20] VITALS: Ht 182.9 cm; Wt 120.0 kg
[~2022-07-20 12:14] MED LIST changes: -AMLO5TAB88 PO; -DULO60CA44 PO; +DULO60CA45 PO; -KDUR20 PO; -LABE100T5 PO; +LABE100T9 PO; +POTA-205 MT; -POTA20TA82 MT
[2022-07-20 17:19] LABS: HEMATOCRIT. 36.7 % (42.0-52.0); MEAN CORPUSCULAR HEMOGLOBIN 19.1 pg (28.0-32.0); MEAN CORPUSCULAR VOLUME 64.1 fL (80.0-94.0); MEAN PLATELET VOLUME 8.6 fl (7.4-10.4); PLATELET 309 x1000/uL (130-400); RED BLOOD CELL COUNT 5.72 mill/uL (4.7-6.1); RED CELL DISTRIBUTION WIDTH 22.9 % (11.6-14.6)
[2022-07-20 17:25] LABS: CHLORIDE 105 mEq/L (98-107)
[2022-07-20] MEDS ORDERED: GUAIFENESIN 200MG/10ML SUGAR FREE UDC PO PRN (20:30)
[2022-07-20] MEDS ORDERED: KETOROLAC 15MG/ML VIAL IV PRN (20:30)
[2022-07-20] MEDS ORDERED: IPRATROPIUM/ALBUTEROL 0.5-3(2.5)MG/3ML NEB NEB PRN (20:30)
[2022-07-20] MEDS ORDERED: CLONIDINE 0.1MG TABLET PO PRN (20:30)
[2022-07-20] MEDS ORDERED: ONDANSETRON HCL 4MG/2ML INJ IV PRN (20:30)
[2022-07-20] MEDS ORDERED: ZOLPIDEM TARTRATE 5MG TABLET PO PRN (20:30)
[2022-07-20] MEDS ORDERED: DOCUSATE SODIUM 100MG CAPSULE PO PRN (20:30)
[2022-07-20] MEDS ORDERED: ENOXAPARIN 40MG/0.4ML SYR SUBCUT SCH (20:30)
[2022-07-20] MEDS ORDERED: NITROGLYCERIN 0.4MG TABLET SL SL PRN (20:30)
[2022-07-20] MEDS ORDERED: MAGNESIUM/ALUMINUM HYDROXIDE/SIMETHICONE 30ML UDC PO PRN (20:30)
[2022-07-20] MEDS ORDERED: ACETAMINOPHEN 325MG TABLET PO PRN ×2 (20:30)
[2022-07-20] MEDS ORDERED: ENOXAPARIN 30MG/0.3ML SYR SUBCUT SCH (21:00)
[2022-07-20] MEDS ORDERED: FUROSEMIDE 20MG/2ML VIAL IVP SCH (21:00)
[2022-07-20] MEDS ORDERED: SPIRONOLACTONE 25MG TABLET PO SCH (21:00)
[2022-07-20] MEDS ORDERED: FAMOTIDINE 20MG TABLET PO SCH (21:00)
[2022-07-20 22:00] VITALS: BP 151/68
[2022-07-20 22:18] LABS: ETHANOL BLOOD < 10 mg/dL; HDL CHOLESTEROL 71 mg/dL (40-59); LDL CHOLESTEROL 38 mg/dL (5-100); TOTAL IRON BINDING CAPACITY 556 ug/dL (250-450)
[2022-07-21 00:50] LABS: PLATELET ESTIMATE NORMAL
[2022-07-21] MEDS ORDERED: CLOPIDOGREL 75MG TABLET PO SCH (09:00)
[2022-07-21] MEDS ORDERED: AMLODIPINE 10MG TABLET PO SCH (09:00)
[2022-09-03] MEDS ORDERED: LOSA25TA3 PO ×2 (13:40)
[2022-09-03] MEDS ORDERED: ASPI-1160 PO ×2 (13:40)
[2022-09-03] MEDS ORDERED: FLUT1DIS2 INH ×2 (13:40)
[2022-09-03] MEDS ORDERED: POLY17PO3 PO ×2 (13:40)
[2022-09-03] MEDS ORDERED: SPIR25TA PO ×2 (13:40)
[2022-09-03] MEDS ORDERED: THIA100T72 PO ×2 (13:40)
[2022-09-03] MEDS ORDERED: FURO-151 PO ×2 (13:40)
[2022-09-03] MEDS ORDERED: ALBU18HF2 INH ×2 (13:40)
[2022-09-03] MEDS ORDERED: FERR-63 PO ×2 (13:40)
[2022-09-07] MEDS ORDERED: THIA100T72 PO (14:15)
[2022-09-07] MEDS ORDERED: POLY17PO3 PO (14:15)
[2022-09-07] MEDS ORDERED: FLUT1DIS2 INH (14:15)
[2022-09-07] MEDS ORDERED: SPIR25TA PO (14:15)
[2022-09-07] MEDS ORDERED: LOSA25TA3 PO (14:15)
[2022-09-07] MEDS ORDERED: ALBU18HF2 INH (14:15)
[2022-09-07] MEDS ORDERED: FERR-63 PO (14:15)
[2022-09-07] MEDS ORDERED: ASPI-1160 PO (14:15)
[2022-09-07] MEDS ORDERED: FURO-151 PO (14:15)
== END 2022-07-21 01:00 | disposition left against medical advice (07) ==
LOC: ER 12:14 → EDBEDREQSVC 19:52 → EDBEDREQTM 19:52 → EDBEDREQ 19:52 → SUPCPDRO 20:26 → ER 07-21 01:00 → CANRESERV 07-21 02:04 → ENRESERV 07-21 02:04 → CMPBEDREQ 07-21 05:52
DX: M25.561 Pain in right knee (principal); I11.0 Hypertensive heart disease with heart failure; I50.9 Heart failure, unspecified; J44.9 Chronic obstructive pulmonary disease, unspecified; I25.2 Old myocardial infarction; G93.89 Other specified disorders of brain; Z86.73 Personal history of transient ischemic attack (TIA), and cerebral infarction without residual deficits; Z79.899 Other long term (current) drug therapy
CPT/HCPCS: 36415; 70450; 71045; 72125; 73030; 73060; 73070; 73090; 73110; 73522; 73560; 73590; 73610; 74176; 80053; 80061; 80320; 82607; 82746; 83036; 83540; 83550; 83880; 84443; 84484; 85025; 93005; 93970; 96372; 96374; 99285; J1650; J1940; G0480

== ENCOUNTER 2022-10-30 17:10 | Inpatient (IN) | payer MEDICARE, MEDICAID ==
[~2022-10-30] VITALS: Ht 195.6 cm; Wt 127.0 kg
[~2022-10-30 17:10] MED LIST changes: -ALBU18HF2 IH; +ALBU18HF2 INH; -ALPR0.25 PO; -AMLO10TA80 MT; +ASPI-1160 PO; -BACL-141 PO; +FERR-63 PO; +FLUT1DIS2 INH; -HYDR-523 PO; -LABE100T9 PO; +LOSA25TA3 PO; -MORP30CP13 PO; -NIFE30TA94 PO; -OXYC-582 PO; +POLY17PO3 PO; -PROT40 PO; +SPIR25TA PO; +THIA100T72 PO; -TOPUD PO; -ZOLP5TAB2 PO
[2022-10-30 23:59] LABS: BASOPHILS % 1.7 % (0.0-2.0); EOSINOPHILS % 7.9 % (0.0-5.0); HEMATOCRIT. 35.4 % (42.0-52.0); LYMPHOCYTES % 38.4 % (20.0-50.0); MEAN CORPUSCULAR HEMOGLOBIN 22.3 pg (28.0-32.0); MEAN CORPUSCULAR VOLUME 71.6 fL (80.0-94.0); MEAN PLATELET VOLUME 8.4 fl (7.4-10.4); PLATELET 292 x1000/uL (130-400); RED BLOOD CELL COUNT 4.95 mill/uL (4.7-6.1); RED CELL DISTRIBUTION WIDTH 22.8 % (11.6-14.6)
[2022-10-31 00:05] LABS: CHLORIDE 107 mEq/L (98-107)
[2022-10-31 02:48] LABS: PLATELET ESTIMATE NORMAL
[2022-10-31] MEDS ORDERED: LOSARTAN POTASSIUM 25 MG TABLET PO ONE (03:45)
[2022-10-31] MEDS ORDERED: FUROSEMIDE 40MG TABLET PO ONE (03:45)
[2022-10-31] MEDS ORDERED: SPIRONOLACTONE 25MG TABLET PO SCH (03:45)
[2022-10-31] MEDS ORDERED: LOSARTAN POTASSIUM 25 MG TABLET PO NR ×2 (04:00→21:00)
[2022-10-31] MEDS ORDERED: FUROSEMIDE 40MG TABLET PO NR ×2 (04:00→21:00)
[2022-10-31] MEDS ORDERED: LORATADINE 10MG TABLET PO SCH (04:30)
[2022-10-31] MEDS ORDERED: GUAIFENESIN 200MG/10ML SUGAR FREE UDC PO PRN (05:00)
[2022-10-31] MEDS ORDERED: NA PHOS,M-B/NA PHOS,DI-BA ENEMA 118ML PR PRN (05:00)
[2022-10-31] MEDS ORDERED: ONDANSETRON HCL 4MG/2ML INJ IV PRN (05:00)
[2022-10-31] MEDS ORDERED: HYDROCODONE/ACETAMINOPHEN 10/325MG TABLET PO PRN (05:00)
[2022-10-31] MEDS ORDERED: IPRATROPIUM/ALBUTEROL 0.5-3(2.5)MG/3ML NEB HHN PRN (05:00)
[2022-10-31] MEDS ORDERED: ACETAMINOPHEN 325MG TABLET PO PRN (05:00)
[2022-10-31] MEDS ORDERED: DIPHENHYDRAMINE 50MG/ML VIAL IV PRN (05:00)
[2022-10-31] MEDS ORDERED: NALOXONE HCL 0.4MG/ML VIAL IV PRN (05:45)
[2022-10-31 08:09] LABS: HEMATOCRIT 34.2 % (42.0-52.0); HEMOGLOBIN 10.6 g/dL (14.0-18.0); MEAN CORPUSCULAR HEMOGLOBIN 21.9 pg (28.0-32.0); MEAN CORPUSCULAR VOLUME 70.8 fL (80.0-94.0); PLATELET 275 x1000/uL (130-400); RED BLOOD CELL COUNT 4.83 mill/uL (4.7-6.1); RED CELL DISTRIBUTION WIDTH 22.8 % (11.6-14.6)
[2022-10-31 08:31] LABS: PHOSPHORUS 3.7 mg/dL (2.5-4.9); T4 FREE 1.08 ng/dL (0.76-1.46)
[2022-10-31] MEDS ORDERED: SPIRONOLACTONE 5MG/ML 1ML ORAL SYR(NEO) PO SCH (09:00)
[2022-10-31] MEDS: CLOPIDOGREL 75MG TABLET PO SCH (10:05)
[2022-10-31] MEDS: SPIRONOLACTONE 25MG TABLET PO SCH ×2 (10:05→21:33)
[2022-10-31] MEDS: ASPIRIN 81MG TABLET PO SCH (10:06)
[2022-10-31] MEDS: THIAMINE HCL 100MG TABLET PO SCH (10:06)
[2022-10-31] MEDS: FINASTERIDE 5MG TABLET PO SCH (10:06)
[2022-10-31] MEDS: DULOXETINE HCL 60MG DR CAPSULE PO SCH (10:06)
[2022-10-31] MEDS: ENOXAPARIN 40MG/0.4ML SYR SUBCUT SCH (10:07)
[2022-10-31] MEDS: PANTOPRAZOLE 40MG DR TABLET PO SCH (10:08)
[2022-10-31 11:45] LABS: FOLIC ACID (FOLATE) SERUM 19.7 ng/mL (>5.38)
[2022-10-31] MEDS ORDERED: FUROSEMIDE 40MG/4ML VIAL IVP NR (14:00)
[2022-10-31] MEDS: CARVEDILOL 3.125 MG TABLET PO SCH ×2 (14:48→21:33)
[2022-10-31 14:56] LABS: CLARITY URINE CLEAR (CLEAR); COLOR URINE YELLOW (YELLOW); KETONES URINE NEGATIVE (NEGATIVE); LEUKOCYTE ESTERASE URINE 2+ (NEGATIVE); NITRITE URINE POSITIVE (NEGATIVE); OCCULT BLOOD URINE NEGATIVE (NEGATIVE); PROTEIN URINE NEGATIVE (NEGATIVE); SPECIFIC GRAVITY URINE 1.015 (1.005-1.030)
[2022-10-31 16:55] LABS: *AMPHETAMINES SCREEN URINE NEGATIVE (NEGATIVE); *BARBITURATES SCREEN URINE NEGATIVE (NEGATIVE); *BENZODIAZEPINES SCREEN URINE NEGATIVE (NEGATIVE); *COCAINE SCREEN URINE PRESUMTIVE POSITIVE (NEGATIVE); CANNABINOID URINE SCREEN PRESUMTIVE POSITIVE (NEGATIVE); METHADONE URINE SCREEN NEGATIVE (NEGATIVE); OPIATES URINE SCREEN NEGATIVE (NEGATIVE); PHENCYCLIDINE URINE SCREEN NEGATIVE (NEGATIVE)
[2022-10-31 18:54] LABS: CREATINE KINASE MB FRACTION 3.1 ng/mL (0.5-3.6)
[2022-10-31] MEDS: MIRTAZAPINE 15MG TABLET PO SCH (19:03)
[2022-10-31] MEDS: TAMSULOSIN HCL 0.4MG SR CAPSULE PO SCH (21:34)
[2022-10-31 22:45] VITALS: BP 130/90
[2022-10-31 22:49] VITALS: BP 130/90
[2022-10-31 22:58] VITALS: BP 130/90
[2022-10-31 23:03] VITALS: BP 130/90
[2022-10-31 23:36] VITALS: BP 120/90
[2022-11-01 01:17] LABS: CREATINE KINASE MB FRACTION 2.8 ng/mL (0.5-3.6)
[2022-11-01 02:00] VITALS: BP 120/80
[2022-11-01 03:46] VITALS: BP 120/80
[2022-11-01] MEDS: ENOXAPARIN 40MG/0.4ML SYR SUBCUT SCH (03:55)
[2022-11-01] MEDS: PANTOPRAZOLE 40MG DR TABLET PO SCH (05:53)
[2022-11-01 08:00] VITALS: BP 114/53
[2022-11-01 08:13] LABS: HEMATOCRIT 34.7 % (42.0-52.0); HEMOGLOBIN 10.9 g/dL (14.0-18.0); MEAN CORPUSCULAR HEMOGLOBIN 22.3 pg (28.0-32.0); MEAN CORPUSCULAR VOLUME 70.8 fL (80.0-94.0); PLATELET 278 x1000/uL (130-400); RED BLOOD CELL COUNT 4.91 mill/uL (4.7-6.1); RED CELL DISTRIBUTION WIDTH 22.9 % (11.6-14.6)
[2022-11-01 09:03] LABS: CHLORIDE 103 mEq/L (98-107)
[2022-11-01 09:14] LABS: CREATINE KINASE 134 IU/L (39-308); CREATINE KINASE MB FRACTION 2.4 ng/mL (0.5-3.6); PHOSPHORUS 3.4 mg/dL (2.5-4.9)
[2022-11-01] MEDS: ASPIRIN 81MG TABLET PO SCH (10:01)
[2022-11-01] MEDS: CARVEDILOL 3.125 MG TABLET PO SCH ×2 (10:01→20:28)
[2022-11-01] MEDS: CLOPIDOGREL 75MG TABLET PO SCH (10:03)
[2022-11-01] MEDS: DULOXETINE HCL 60MG DR CAPSULE PO SCH (10:03)
[2022-11-01] MEDS: FINASTERIDE 5MG TABLET PO SCH (10:03)
[2022-11-01] MEDS: THIAMINE HCL 100MG TABLET PO SCH (10:04)
[2022-11-01] MEDS: HYDROCODONE/ACETAMINOPHEN 5/325MG TABLET PO PRN ×2 (10:05→15:26)
[2022-11-01] MEDS: MAGNESIUM/ALUMINUM HYDROXIDE/SIMETHICONE 30ML UDC PO PRN (10:06)
[2022-11-01 12:00] VITALS: BP 119/65
[2022-11-01] MEDS: DOCUSATE SODIUM 100MG CAPSULE PO PRN (15:24)
[2022-11-01 16:00] VITALS: BP 128/65
[2022-11-01] MEDS: MIRTAZAPINE 15MG TABLET PO SCH (17:27)
[2022-11-01 20:00] VITALS: BP 139/59
[2022-11-01] MEDS: SPIRONOLACTONE 25MG TABLET PO SCH (20:28)
[2022-11-01] MEDS: TAMSULOSIN HCL 0.4MG SR CAPSULE PO SCH (20:28)
[2022-11-02] VITALS: BP 147/59
[2022-11-02] MEDS: FAMOTIDINE 20MG TABLET PO SCH ×2 (03:41→18:30)
[2022-11-02] MEDS: ENOXAPARIN 40MG/0.4ML SYR SUBCUT SCH (03:41)
[2022-11-02 04:00] VITALS: BP 152/60
[2022-11-02 08:00] VITALS: BP 148/50
[2022-11-02] MEDS: ASPIRIN 81MG TABLET PO SCH (09:54)
[2022-11-02] MEDS: CARVEDILOL 3.125 MG TABLET PO SCH ×2 (09:55→23:25)
[2022-11-02] MEDS: DULOXETINE HCL 60MG DR CAPSULE PO SCH (09:55)
[2022-11-02] MEDS: FINASTERIDE 5MG TABLET PO SCH (09:56)
[2022-11-02] MEDS: FERROUS SULFATE 325MG TABLET PO SCH (09:56)
[2022-11-02] MEDS: THIAMINE HCL 100MG TABLET PO SCH (09:56)
[2022-11-02] MEDS: CLOPIDOGREL 75MG TABLET PO SCH (09:56)
[2022-11-02] MEDS: DOCUSATE SODIUM 100MG CAPSULE PO PRN (09:57)
[2022-11-02] MEDS: MAGNESIUM/ALUMINUM HYDROXIDE/SIMETHICONE 30ML UDC PO PRN (09:57)
[2022-11-02] MEDS: HYDROCODONE/ACETAMINOPHEN 5/325MG TABLET PO PRN ×3 (09:59→23:27)
[2022-11-02 12:00] VITALS: BP 156/53
[2022-11-02 16:00] VITALS: BP 132/52
[2022-11-02] MEDS: MIRTAZAPINE 15MG TABLET PO SCH (18:30)
[2022-11-02 20:00] VITALS: BP 144/50
[2022-11-02] MEDS: SPIRONOLACTONE 25MG TABLET PO SCH (23:24)
[2022-11-02] MEDS: TAMSULOSIN HCL 0.4MG SR CAPSULE PO SCH (23:26)
[2022-11-03] VITALS: BP 145/56
[2022-11-03 04:00] VITALS: BP 134/66
[2022-11-03] MEDS: ENOXAPARIN 40MG/0.4ML SYR SUBCUT SCH (06:46)
[2022-11-03] MEDS: FAMOTIDINE 20MG TABLET PO SCH ×2 (06:46→18:54)
[2022-11-03 08:00] VITALS: BP 145/57
[2022-11-03] MEDS: CLOPIDOGREL 75MG TABLET PO SCH (10:22)
[2022-11-03] MEDS: DULOXETINE HCL 60MG DR CAPSULE PO SCH (10:22)
[2022-11-03] MEDS: ASPIRIN 81MG TABLET PO SCH (10:22)
[2022-11-03] MEDS: THIAMINE HCL 100MG TABLET PO SCH (10:22)
[2022-11-03] MEDS: CARVEDILOL 3.125 MG TABLET PO SCH ×2 (10:22→20:17)
[2022-11-03] MEDS: FINASTERIDE 5MG TABLET PO SCH (10:25)
[2022-11-03 12:00] VITALS: BP 153/48
[2022-11-03 16:00] VITALS: BP 159/69
[2022-11-03] MEDS: ENOXAPARIN 30MG/0.3ML SYR SUBCUT SCH (18:54)
[2022-11-03] MEDS: MIRTAZAPINE 15MG TABLET PO SCH (18:54)
[2022-11-03] MEDS: HYDROCODONE/ACETAMINOPHEN 5/325MG TABLET PO PRN (19:43)
[2022-11-03 20:00] VITALS: BP 142/54
[2022-11-03] MEDS: TAMSULOSIN HCL 0.4MG SR CAPSULE PO SCH (20:18)
[2022-11-03] MEDS: SPIRONOLACTONE 25MG TABLET PO SCH (20:18)
[2022-11-04] VITALS: BP 140/60
[2022-11-04] MEDS: FAMOTIDINE 20MG TABLET PO SCH ×2 (06:44→18:04)
[2022-11-04] MEDS: ENOXAPARIN 30MG/0.3ML SYR SUBCUT SCH ×2 (06:45→18:05)
[2022-11-04 08:00] VITALS: BP 153/52
[2022-11-04] MEDS: ASPIRIN 81MG TABLET PO SCH (08:39)
[2022-11-04] MEDS: CARVEDILOL 3.125 MG TABLET PO SCH ×2 (08:40→20:51)
[2022-11-04] MEDS: FERROUS SULFATE 325MG TABLET PO SCH (08:40)
[2022-11-04] MEDS: THIAMINE HCL 100MG TABLET PO SCH (08:41)
[2022-11-04] MEDS: FINASTERIDE 5MG TABLET PO SCH (08:41)
[2022-11-04] MEDS: CLOPIDOGREL 75MG TABLET PO SCH (08:41)
[2022-11-04] MEDS: MAGNESIUM/ALUMINUM HYDROXIDE/SIMETHICONE 30ML UDC PO PRN (08:43)
[2022-11-04] MEDS: HYDROCODONE/ACETAMINOPHEN 5/325MG TABLET PO PRN ×2 (08:43→15:29)
[2022-11-04] MEDS: DULOXETINE HCL 60MG DR CAPSULE PO SCH (08:51)
[2022-11-04 12:00] VITALS: BP 149/59
[2022-11-04] MEDS: DOCUSATE SODIUM 100MG CAPSULE PO PRN (15:26)
[2022-11-04 16:00] VITALS: BP 161/63
[2022-11-04] MEDS: MIRTAZAPINE 15MG TABLET PO SCH (18:05)
[2022-11-04 20:00] VITALS: BP 150/58
[2022-11-04] MEDS: SPIRONOLACTONE 25MG TABLET PO SCH (20:51)
[2022-11-04] MEDS: TAMSULOSIN HCL 0.4MG SR CAPSULE PO SCH (20:51)
[2022-11-05] VITALS: BP 142/55
[2022-11-05 04:00] VITALS: BP 140/58
[2022-11-05] MEDS: FAMOTIDINE 20MG TABLET PO SCH ×2 (06:25→16:35)
[2022-11-05] MEDS: ENOXAPARIN 30MG/0.3ML SYR SUBCUT SCH ×2 (06:25→18:00)
[2022-11-05 08:00] VITALS: BP 153/75
[2022-11-05] MEDS: ASPIRIN 81MG TABLET PO SCH (11:06)
[2022-11-05] MEDS: CARVEDILOL 3.125 MG TABLET PO SCH ×2 (11:06→20:34)
[2022-11-05] MEDS: DULOXETINE HCL 60MG DR CAPSULE PO SCH (11:06)
[2022-11-05] MEDS: CLOPIDOGREL 75MG TABLET PO SCH (11:07)
[2022-11-05] MEDS: THIAMINE HCL 100MG TABLET PO SCH (11:07)
[2022-11-05] MEDS: MAGNESIUM/ALUMINUM HYDROXIDE/SIMETHICONE 30ML UDC PO PRN (11:07)
[2022-11-05] MEDS: FINASTERIDE 5MG TABLET PO SCH (11:07)
[2022-11-05] MEDS: ACETAMINOPHEN 325MG TABLET PO PRN ×2 (11:08→16:36)
[2022-11-05 12:00] VITALS: BP 163/61
[2022-11-05] MEDS: CLONIDINE 0.1MG TABLET PO PRN (14:35)
[2022-11-05] MEDS: MIRTAZAPINE 15MG TABLET PO SCH (16:35)
[2022-11-05 20:00] VITALS: BP 128/79
[2022-11-05] MEDS: TAMSULOSIN HCL 0.4MG SR CAPSULE PO SCH (20:33)
[2022-11-05] MEDS: SPIRONOLACTONE 25MG TABLET PO SCH (20:34)
[2022-11-06] VITALS: BP 124/53
[2022-11-06 04:00] VITALS: BP 127/42
[2022-11-06] MEDS: ENOXAPARIN 30MG/0.3ML SYR SUBCUT SCH ×2 (06:18→18:05)
[2022-11-06] MEDS: FAMOTIDINE 20MG TABLET PO SCH ×2 (06:19→18:05)
[2022-11-06 08:00] VITALS: BP 140/59
[2022-11-06] MEDS: FERROUS SULFATE 325MG TABLET PO SCH (09:51)
[2022-11-06] MEDS: DULOXETINE HCL 60MG DR CAPSULE PO SCH (09:51)
[2022-11-06] MEDS: FINASTERIDE 5MG TABLET PO SCH (09:51)
[2022-11-06] MEDS: CLOPIDOGREL 75MG TABLET PO SCH (09:51)
[2022-11-06] MEDS: THIAMINE HCL 100MG TABLET PO SCH (09:51)
[2022-11-06] MEDS: ASPIRIN 81MG TABLET PO SCH (09:51)
[2022-11-06] MEDS: CARVEDILOL 3.125 MG TABLET PO SCH ×2 (09:52→21:15)
[2022-11-06 12:00] VITALS: BP 130/45
[2022-11-06 16:00] VITALS: BP 149/66
[2022-11-06] MEDS: MIRTAZAPINE 15MG TABLET PO SCH (18:05)
[2022-11-06 20:00] VITALS: BP 150/56
[2022-11-06] MEDS: SPIRONOLACTONE 25MG TABLET PO SCH (21:16)
[2022-11-06] MEDS: TAMSULOSIN HCL 0.4MG SR CAPSULE PO SCH (21:17)
[2022-11-06] MEDS ORDERED: FAMO20TA8 PO (21:45)
[2022-11-06] MEDS ORDERED: COR3 PO (21:45)
[2022-11-07] VITALS: BP 144/58
[2022-11-07] MEDS: ENOXAPARIN 30MG/0.3ML SYR SUBCUT SCH (06:51)
[2022-11-07] MEDS: FAMOTIDINE 20MG TABLET PO SCH ×2 (06:51→16:02)
[2022-11-07 08:00] VITALS: BP 144/64
[2022-11-07] MEDS: FINASTERIDE 5MG TABLET PO SCH (09:31)
[2022-11-07] MEDS: CLOPIDOGREL 75MG TABLET PO SCH (09:31)
[2022-11-07] MEDS: DULOXETINE HCL 60MG DR CAPSULE PO SCH (09:31)
[2022-11-07] MEDS: ASPIRIN 81MG TABLET PO SCH (09:31)
[2022-11-07] MEDS: THIAMINE HCL 100MG TABLET PO SCH (09:32)
[2022-11-07] MEDS: CARVEDILOL 3.125 MG TABLET PO SCH (09:35)
[2022-11-07 12:00] VITALS: BP 124/63
[2022-11-07 15:07] VITALS: BP 150/68
[2022-11-07] MEDS: CLONIDINE 0.1MG TABLET PO PRN (15:58)
[2022-11-07] MEDS: MIRTAZAPINE 15MG TABLET PO SCH (16:02)
== END 2022-11-07 17:10 | DRG 194 ==
LOC: ER 17:10 → 6EST 10-31 05:01 → EDBEDREQ 10-31 05:05 → SUPCPDRO 10-31 08:23 → ENRESERV 10-31 22:52
PROVIDERS: ADMIT Internal Medicine; ATTEND Internal Medicine
DX: I11.0 Hypertensive heart disease with heart failure (principal); I21.A1 Myocardial infarction type 2; I69.351 Hemiplegia and hemiparesis following cerebral infarction affecting right dominant side; D50.9 Iron deficiency anemia, unspecified; E66.9 Obesity, unspecified; F17.210 Nicotine dependence, cigarettes, uncomplicated; I50.23 Acute on chronic systolic (congestive) heart failure; J44.9 Chronic obstructive pulmonary disease, unspecified; Z68.33 Body mass index [BMI] 33.0-33.9, adult; I25.10 Atherosclerotic heart disease of native coronary artery without angina pectoris; Z20.822 Contact with and (suspected) exposure to COVID-19; Z59.00 Homelessness unspecified; Z88.0 Allergy status to penicillin; Z79.899 Other long term (current) drug therapy; Z79.82 Long term (current) use of aspirin; Z79.02 Long term (current) use of antithrombotics/antiplatelets
CPT/HCPCS: 36415; 71045; 80053; 80305; 81001; 82550; 82553; 82607; 82728; 83036; 83550; 83735; 83880; 84100; 84443; 84484; 85025; 85027; 87077; 87186; 87426; 93005; 93306; 93970; 97162; 97165; 99285; C9803; J1650; J1940